=== PATIENT | male | born 1980 | race Caucasian/White ===

== ENCOUNTER → 2017-07-05 | Outpatient (REF) | payer OTHER | LOC: M LAB REF 13:16 | PROVIDERS: ATTEND Nurse Practitioner Adult Health | DX: R06.02 Shortness of breath (principal) ==

== ENCOUNTER → 2018-06-01 | Outpatient (CLI) | payer OTHER | LOC: M RAD 07:42 | DX: J32.4 Chronic pansinusitis (principal); J32.2 Chronic ethmoidal sinusitis | CPT/HCPCS: 70486 ==

== ENCOUNTER 2018-07-30 11:38 | Day surgery (SDC) | payer OTHER ==
[2018-07-30] MEDS: LR 1,000 ML IV (06:00)
[~2018-07-30 11:38] MED LIST: LIDOCAINE 1% MDV 20ML VIAL SQ
[2018-07-30] MEDS ORDERED: fentaNYL 250 MCG/5 ML INJECTION (J3010) As Ordered (13:31)
[2018-07-30] MEDS ORDERED: PROPOFOL 200 MG/20 ML VIAL As Ordered (13:31)
[2018-07-30] MEDS ORDERED: ROCURONIUM BROMIDE 50 MG/5 ML VIAL As Ordered (13:31)
[2018-07-30] MEDS ORDERED: LIDOCAINE 2% INJ 100 MG/5 ML SDV (FOR ANES.) As Ordered (13:31)
[2018-07-30] MEDS ORDERED: MIDAZOLAM INJ 2 MG/2 ML VIAL (J2250) As Ordered (13:32)
[2018-07-30] MEDS: OXYMETAZOLINE NASAL SPRAY (AFRIN) As Ordered (14:11)
[2018-07-30] MEDS: LIDOCAINE W/EPINEPHRINE 1% 20ML VIAL As Ordered (14:11)
[2018-07-30] MEDS: METHYLENE BLUE 0.5% (5MG/ML) 10 ML AMP (PROVAYBLUE)(Q9968 PER 1MG) As Ordered ×2 (14:11→14:45)
[2018-07-30] MEDS ORDERED: dexameTHASONE 4 MG/ML 1ML VIAL (J1100) As Ordered ×2 (14:19)
[2018-07-30] MEDS ORDERED: METOCLOPRAMIDE INJ 10MG/2ML VIAL (J2765) As Ordered (14:19)
[2018-07-30] MEDS ORDERED: ONDANSETRON 4MG/2ML VIAL (J2405) As Ordered (14:19)
[2018-07-30] MEDS: EPINEPHrine 1MG/ML INJ 30ML MD-VIAL As Ordered (14:30)
[2018-07-30] MEDS ORDERED: SUGAMMADEX SODIUM 500 MG/5 ML VIAL (BRIDION) As Ordered ×2 (15:06)
[2018-07-30] MEDS ORDERED: PERCOCET 5MG/325MG TAB PO (15:45)
[2018-07-30] MEDS ORDERED: IBUPROFEN 800 MG TAB PO (15:45)
[2018-07-30] MEDS ORDERED: LR 1,000 ML IV (15:45)
[2018-07-30] MEDS ORDERED: fentaNYL 100 MCG/2 ML INJECTION (J3010) IV (15:45)
[2018-07-30] MEDS ORDERED: METOCLOPRAMIDE INJ 10MG/2ML VIAL (J2765) IV (15:45)
[2018-07-30] MEDS: PERCOCET 5MG/325MG TAB PO ×2 (16:06→16:42)
[2018-07-30] MEDS: ONDANSETRON 4MG/2ML VIAL (J2405) IV (16:40)
== END 2018-07-30 17:32 | disposition home or self-care (01) ==
LOC: M SDC 11:38
DX: J34.2 Deviated nasal septum (principal); J32.9 Chronic sinusitis, unspecified; J45.909 Unspecified asthma, uncomplicated; E78.00 Pure hypercholesterolemia, unspecified; K21.9 Gastro-esophageal reflux disease without esophagitis; M12.9 Arthropathy, unspecified; M54.2 Cervicalgia; R06.83 Snoring; G47.30 Sleep apnea, unspecified; J30.89 Other allergic rhinitis; Z79.899 Other long term (current) drug therapy
CPT/HCPCS: 30520

== ENCOUNTER 2018-08-08 21:36 | Emergency (ER) | payer OTHER ==
[2018-08-08] MEDS: PENICILLIN V POTASSIUM 500 MG TAB PO (22:26)
== END 2018-08-08 22:28 | disposition home or self-care (01) ==
LOC: M ED 21:36
DX: J02.0 Streptococcal pharyngitis (principal); J30.2 Other seasonal allergic rhinitis; Z79.899 Other long term (current) drug therapy
CPT/HCPCS: 87430